=== PATIENT | female | born 1970 | race Caucasian/White ===

== ENCOUNTER 2016-12-18 13:35 | Observation (INO) | payer OTHER ==
--- NOTE | ~2016-12-18 | O ---
[facility] [place] [address] OPERATIVE REPORT Name: JESSICA ALEGRE Room #: 442-P [facility] Darnell West#: [id number] Admission: 12/18/16 Attend Phys: Orlin Johns MD Discharge: 12/19/16 Date of : 66 Report #: [id number] THIS REPORT FOR: //name// CC: Margarette Johns DATE OF SERVICE: 12/18/2016 PATIENT OF: Margarette Borges MD PREOPERATIVE DIAGNOSES: Cholelithiasis, cholecystitis, and biliary colic. POSTOPERATIVE DIAGNOSES: Cholelithiasis, cholecystitis, and biliary colic. PROCEDURE: Laparoscopic cholecystectomy. SURGEON: Orlin Johns MD ELECTRICAL ENGINEERING DESIGNER: Dilma Irwin RN. ANESTHESIA: General. The patient was brought to the operating room and placed on operative table in the supine position. Sequential compression devices were in place for DVT prophylaxis. She received an appropriate preoperative dose of Ancef. The patient underwent a general endotracheal anesthesia and the abdomen was then prepped and draped in a sterile fashion. Skin and subcutaneous tissue around the umbilicus was then infiltrated with 0.5% Marcaine. Infraumbilical skin incision was then performed using #11 scalpel blade. Hemostasis obtained using electrocautery. Dissection was carried down through subcutaneous tissue, the fascia, which was then grasped between 2 Joe clamps and incised with curved Carolina scissors. Peritoneum was entered and a pursestring suture of 0 Vicryl was then placed in the fascia. A 12-mm disposable Davion port was then inserted through the opening and held into place with the balloon port and the pursestring suture. Pneumoperitoneum obtained to a level of 10-15 mmHg. Laparoscope was then inserted through this port and exploration was performed, which revealed a thickened dilated gallbladder. There were no other intraabdominal abnormalities. Two lateral 5-mm Surgiports as well as an upper midline 11-mm Surgiport were all inserted under direct visualization after infiltration with 0.5% Marcaine. The gallbladder was then grasped and retracted superiorly and the cystic duct and artery were carefully dissected free. The cystic common bile duct junction was clearly identified. The cystic artery was doubly clipped on each side and divided with the scissors. The cystic duct was then triply clipped on the common bile duct side and doubly clipped on the gallbladder side and divided with the scissors. The gallbladder was then [address] [address] OPERATIVE REPORT Name: JESSICA ALEGRE Room #: 442-P VARUN West#: [id number] Admission: 12/18/16 Attend Phys: Orlin Johns MD Discharge: 12/19/16 Date of : 66 Report #: [id number] dissected free from the bed using the hook electrocautery. Prior to completing the dissection, the gallbladder was retracted superiorly and the bed inspected for hemostasis, which was obtained using electrocautery and found to be intact. Gallbladder was then transected and brought out through the periumbilical port and sent as specimen to pathology. Port was then returned to the abdomen and the area was then copiously irrigated with warm saline solution, which was suctioned free and hemostasis was checked and found to be intact. The ports were then all removed under direct visualization, hemostasis intact at each port site. Pneumoperitoneum was released and the periumbilical port was then also removed under direct visualization, hemostasis intact at that port site as well. The skin was then closed using interrupted vertical mattress 5-0 nylon sutures and the wound was dressed with Band-Aids. The patient was then awakened from the general endotracheal anesthesia, extubated, and taken to recovery room in good condition. Estimated blood loss was approximately 10 mL and the patient tolerated the procedure well. All sponge, lap, and instrument counts correct times 2. <ELECTRONICALLY SIGNED> By: Orlin Johns MD 12/23/16 1010 1631 1728 Orlin Johns MD /nt
--- NOTE | ~2016-12-18 | H ---
[facility] [place] [address] HISTORY AND PHYSICAL Name: JESSICA ALEGRE Room #: 150-5 ADM IN M.R.#: [id number] Admission: 12/18/16 Attend Phys: Orlin Johns MD Discharge: Date of : 66 Report #: [id number] THIS REPORT FOR: //name// CC: Margarette Johns DATE OF SERVICE: 12/18/[address] Margarette Borges. CHIEF COMPLAINT: Abdominal pain. HISTORY OF PRESENT ILLNESS: The patient is a 46-year-old white female who for about a oqph-mct-p-half has had significant nausea, heartburn, epigastric pain, oftentimes with radiation to the back. She has felt like she has had excessive gas. She has had vomiting several times, rarely some diarrhea. There is some bloating. She states it is definitely associated with eating barbeque, but also other fatty foods. She has been taking Zantac and Fatimah-[place] which do help, but do not offer any complete relief. On Wednesday, she had some scrambled eggs late in the evening and had a severe attack which lasted about 5-6 hours. She went to see primary care physician, Dr. Borges who ordered laboratory and then abdominal ultrasound. Her laboratory was all normal. Her ultrasound of the abdomen did show a gallbladder with markedly thickened wall and a gallstone impacted within the neck of the gallbladder. There was no mention of common bile duct on the report. There was some mild tenderness over the gallbladder. Dr. Borges then recommended surgical consultation. PAST MEDICAL HISTORY: [place] teeth extraction. MEDICATIONS: None. ALLERGIES: No known drug allergies. FAMILY HISTORY: Noncontributory. Mother with a history of coronary artery disease. SOCIAL HISTORY: . No children. Quit smoking cigarettes 10 years ago. She currently does vape. She drinks alcohol occasionally. 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 She is accompanied today by her . REVIEW OF SYSTEMS: Pertinent positives as above. Full review of systems as per the electronic medical record is reviewed by myself. PHYSICAL EXAMINATION: GENERAL: This is a well-developed, well-nourished pleasant [place], [place] [address] HISTORY AND PHYSICAL Name: JESSICA ALEGRE Room #: 1505 [facility]#: [id number] Admission: 12/18/16 Attend Phys: Orlin Johns MD Discharge: Date of : 66 Report #: [id number] acute distress. VITAL SIGNS: Stable. She is afebrile. HEENT: Sclerae is nonicteric. Mucous membranes are moist and pink. NECK: There is no adenopathy, no thyromegaly. LUNGS: Clear to auscultation bilaterally. CARDIOVASCULAR: Regular rate and rhythm. No murmurs, S3 or S4. Normal PMI. ABDOMEN: Soft, flat, nontender, no palpable masses, no organomegaly, no hernias. She does have some mild tenderness in the epigastric area, but no rebound or guarding. EXTREMITIES: No clubbing, cyanosis or edema. NEUROLOGIC: Intact, with a clear mental status. No focal motor or sensory deficits. LABORATORY DATA: Glucose 85, BUN 9, creatinine 0.9, sodium 141, potassium 3.8, chloride 105, CO2 26, calcium 9.3. Serum total protein 7.6, albumin 4.3, bilirubin 0.9, alkaline phosphatase 70, SGOT 20, SGPT 24, lipase 177, amylase 48, all normal. IMPRESSION: A 46-year-old white female with cholelithiasis, cholecystitis, biliary colic. I fully discussed with the patient and her the diagnoses, prognosis, and treatment options. I carefully and thoroughly discussed with them that gallbladder surgery may relieve all, some, or none of her symptoms. They stated they understood and wished to proceed with surgery. PLAN: We will perform laparoscopic cholecystectomy under general endotracheal anesthesia. This is a 23-hour observation admission to [facility]. The procedure and its risks, benefits and possible complications including possible open cholecystectomy were fully discussed with the patient and her . They stated understood and agreed for proposed surgery. <ELECTRONICALLY SIGNED> By: Orlin Johns MD 12/18/16 1634 1304 1415 Orlin Johns MD /nt
--- NOTE | ~2016-12-18 | S ---
[facility] [place] [address] SURGICAL PATH RPT PROCEDURE Name: JESSICA ALEGRE Room #: 442-P [facility] Darnell West#: [id number] Admission: 12/18/16 Date of : 66 Discharge: 12/19/16 Report #: [id number] Path Case #: [id number] PATHOLOGY REPORT COLLECTION DATE: 12/18/2016 RECEIVED DATE: 12/18/2016 SUBMITTING PHYS: Dr. Orlin Johns OTHER PHYS: Dr. Lisa Borges SPECIMEN(S) RECEIVED: A.Gallbladder * * * * * * * * * * * * FINAL DIAGNOSIS: Gallbladder, cholecystectomy: - Moderate acute cholecystitis associated with surface ulceration. - Cholelithiasis. (IUV:mml; 12/22/2016) PATHOLOGIST: Erlinda Regalado M.D. REPORT ELECTRONICALLY SIGNED BY: Erlinda Regalado M.D. DATE/TIME: 12/22/2016 15:18 * * * * * * * * * * * * GROSS PATHOLOGY: Received in formalin labeled "jake Masters," is a 7.4 x 2.8 x 2.5 cm, intact gallbladder with smooth to shaggy and pale mendez to green-plata serosal surfaces. Opening the gallbladder reveals shaggy, pale green mucosa and an average wall thickness of 0.1 cm. The gallbladder is filled with a thick, sludge-like dark green material. A single calculus is present at the fundus that is granular and yellow-mendez in appearance, measuring 1.8 cm in maximum dimension. No masses are noted grossly. Service Unit Operator Oil Well sections from the body and fundus are submitted along with the proximal margin in cassette A1. ([facility]; 12/21/2016) CLINICAL HISTORY: Gallstones INITIAL CPT CODE(S): A; 97612 Professional services performed by [facility] at [facility] [address] , [place] [address] [facility] [address] [place] [address] SURGICAL PATH RPT PROCEDURE Name: JESSICA ALEGRE Room #: 442-P [facility] Darnell West#: [id number] Admission: 12/18/16 Date of : 66 Discharge: 12/19/16 Report #: [id number] Path Case #: [id number] Technical services performed by [facility] at [address] [place] [address], [address] [address]. [facility] [place] [address] PHONE: [phone] DIRECTOR: Dieter Patel M.D. * * * END OF REPORT * * *
[2016-12-18 14:48] VITALS: BP 139/73
[2016-12-18] MEDS ORDERED: NORCO 5-325 TA1 EACH PO (15:08)
[2016-12-18 18:24] VITALS: BP 124/73
[2016-12-18 19:30] VITALS: BP 118/74
[2016-12-19 03:55] VITALS: BP 107/66
[2016-12-19 08:00] VITALS: BP 99/59
[2016-12-19 11:20] VITALS: BP 99/59
== END 2016-12-19 11:46 | disposition home or self-care (01) ==
LOC: 4S 13:35 → TBA 13:35 → 4S 17:51
DX: K80.10 Calculus of gallbladder with chronic cholecystitis without obstruction (principal); K80.40 Calculus of bile duct with cholecystitis, unspecified, without obstruction; Z87.891 Personal history of nicotine dependence
CPT/HCPCS: 10102; 50010; 50101; 50411; 50555; 50558; 51474; 51489; 52266; 53314; 56462; 56524; 56528; 62110; 62900; 70005